=== PATIENT | female | born 1980 | race Caucasian/White ===

== ENCOUNTER 2018-03-13 21:41 | Emergency (ER) | payer MEDICAID, SELFPAY ==
[2018-03-13 21:41] VITALS: BP 142/76; PULSE 81; RESP 16; TEMP 36.6; O2SAT 98; BMI 34.9
--- NOTE | 2018-03-13 21:53 | CT_ITS ---
STUDY: CT ABDOMEN AND PELVIS WITHOUT CONTRAST REASON FOR EXAM: Female, 37 years old. Lower abdominal pain. Cramping. RADIATION DOSAGE (If Supplied By Facility): CTDIvol = ( 13.28 ) mGy, DLP = ( 713.44 ) mGycm TECHNIQUE: Transaxial images were obtained from the dome of the diaphragm to the symphysis pubis without oral contrast, and without intravenous contrast. Sagittal and coronal images were reconstructed. Individualized dose optimization techniques were used for this CT. COMPARISON: None. FINDINGS: The visualized lung bases are unremarkable. The visualized portions of the heart are within normal limits. Normal liver. The gallbladder is contracted. No biliary ductal dilatation. Normal spleen. Normal pancreas. Normal bilateral adrenal glands. There is a 2 mm nonobstructing calculus lower pole calyx of an otherwise normal right kidney. There are at least 2 calculi in the mid to lower left kidney. The largest measures 3 mm. No evidence of hydronephrosis. Normal visualized ureters. Normal visualized stomach. Normal small intestine. Descending and sigmoid diverticulosis without acute inflammatory change. The colon is otherwise unremarkable. The appendix is visualized and appears normal. Normal abdominal aorta. Normal inferior vena cava. Normal retroperitoneum. Normal urinary bladder. Normal uterus. There is a 3.9 x 2.4 x 3.1 cm right ovarian cyst. Normal left adnexa. There is no pelvic lymphadenopathy. No free air or free fluid is seen within the peritoneal cavity. Normal abdominal wall. Normal osseous structures. CT/Abdomen/Pelvis without Cont IMPRESSION: 1. Large right ovarian cyst. 2. Nonobstructing bilateral renal calculi. 3. Colonic diverticulosis without acute inflammatory change. Electronically Signed: Edward Rowland DO at 22:42 EDT Tel [phone], Service support ,
[2018-03-13 22:10] LABS: Mucous, Urine 0 SEEN /hpf (<or=2+); Red Blood Cells-Urine 0 SEEN /hpf (0-5)
[2018-03-13 22:13] LABS: Color, Urine Yellow (Yellow); Glucose, Dipstick Normal (Normal); Ketone-Dipstick Negative (Negative); Leukocyte Esterase-Dipstick 500 /ul (Negative); Nitrite-Dipstick Negative (Negative); Occult Blood-Urine 10 /ul (Negative); Protein-Dipstick 15 mg/dl (Negative); Urine Bilirubin Dipstick Negative (Negative); Urine Clarity Clear (Clear); Urine Urobilinogen Normal (Normal)
[2018-03-13] MEDS: 0.9% Normal Saline 1,000 ML 125 ML IV (22:15)
[2018-03-13] MEDS: Ketorolac 30 MG/ML Syringe IV (22:15)
[2018-03-13 22:23] LABS: Bacteria RARE /hpf (None Seen); Squamous Epithelial Cells - UA 5-10 SEEN /hpf (5-10); White Blood Cells 0-5 SEEN /hpf (0-5)
[2018-03-13 22:29] LABS: Absolute Lymphocyte Count 2.92 X10^3/ul (0.83-4.51); Absolute Neutrophil Count 5.4 X10^3/uL (2.0-7.7); Basophil# 0.02 X10^3/uL; Basophil% 0.2 % (0-1); Eosinophil# 0.38 X10^3/uL; Eosinophils% 4.1 % (0-5); Hematocrit 39.5 % (37-47); Hemoglobin 13.2 g/dl (12.0-15.0); Lymphocyte # 2.92 X10^3/ul (4.0); Lymphocyte % 31.1 % (19-41); Mean Corp Hgb Conc 33.4 g/gl (32-36); Mean Corpuscular Hgb 29.1 pg (27.0-32.0); Mean Corpuscular Volume 87.2 fL (81-99); Mean Platelet Vol. 10.1 fl (6.2-12.0); Monocyte# 0.63 X10^3/uL; Monocyte% 6.7 % (0-10); Neutrophil # 5.42 X10^3/uL (2.7-7.7); Neutrophil % 57.8 % (47-70); Platelet Count 222 K/mm3 (150-450); RBC Distribution Width CV 13.4 % (11.6-14.6); RBC Distribution Width SD 42.9 fl (35.1-43.9); Red Blood Count 4.53 M/mm3 (4.2-5.4); White Blood Count 9.4 K/mm3 (4.4-11.0)
[2018-03-13 22:30] LABS: POSITIVE COUNT NO; POSITIVE DIFFERENTIAL NO; POSITIVE MORPHOLOGY NO
[2018-03-13 22:39] LABS: ALB/GLOB Ratio 1.1 RATIO (0.9-2.4); AST(SGOT) 20 U/L (15-37); Alanine Aminotransfer ALT/SGPT 33 U/L (13-56); Albumin, Serum 3.2 g/dL (3.2-5.0); Alkaline Phosphatase 74 U/L (45-117); Anion Gap 9 (5-15); BUN 10 mg/dL (7-18); BUN/Creat Ratio 11.7 RATIO (10-20); Calcium,Total 8.4 mg/dL (8.5-10.1); Chloride 110 mmol/L (98-107); Creatinine, Serum 0.86 mg/dL (0.55-1.02); EST Glomerular Filtration Rate 78 mL/min (>60); Est Glom Filt Rate - Afr Amer 95 mL/min (>60); Estimated Creatinine Clearance 69.46 ml/min; Globulin 2.8 g/dL (2.2-4.2); Glucose 91 mg/dL (74-106); Lipase 243 U/L (73-393); Potassium 3.9 mmol/L (3.5-5.1); Sodium Level 146 mmol/L (136-145)
--- NOTE | 2018-03-13 22:56 | ED.DCSUM_ITS ---
- ER Visit Summary Date of Service: 03/13/18 Chief Complaint: [Abdominal pain] History of Present Illness: The patient is a 37 F [presents to the emergency department complaint of abdominal pain that she has had for about 3 weeks. Patient describes a dull cramping type sensation like menstrual period type pain has been relatively continuous. Patient denies any fevers. She has had some intermittent nausea and vomiting when the pains been severe. Patient states that she has had no fevers at home. She denies diarrhea or blood in her stool. Patient has history of uterine ablation and she has had a tubal ligation. She denies urinary symptoms.] Physical Examination: [HEENT-PERRLA, EOMI. Cranial nerves II through XII grossly intact. TMs clear. Mucous membranes moist. No adenopathy. Cardiovascular-regular rate and rhythm without murmur or ectopy Lungs-clear to auscultation, chest wall stable without crepitus or subcu emphysema Abdomen-normoactive bowel sounds, soft. Patient has diffuse tenderness to the lower abdomen in the right lower quadrant, suprapubic region and left lower quadrant. There is no rebound, rigidity, or perineal signs. No masses palpated Extremities-intact ?4, normal range of motion, normal pulses, atraumatic] Test Results: [CBC with differential obtained showed a normal white blood cell count of 9.4, hemoglobin 13, hematocrit 39, platelets 222. Chemistries unremarkable. LFTs were normal. Lipase was 243. Urinalysis was normal. CT scan abdomen pelvis without contrast showed a large right ovarian cyst measuring 3.9 x 2.4 x 3.1 cm. The appendix was visualized and was normal. Nothing else significant on exam.] Emergency Department Course and Treatment: [Patient initially was medicated with Toradol and had some pain improvement.] Treatment Plan: [Patient will be given a prescription for [place] for severe pain. Patient will be referred to [facility] on-call.] Disposition: [Discharged home in stable condition] Impression: [Right ovarian cyst Abdominal pain] This note was generated with [employer] dictation software. It may contain incorrect words, spelling, and punctuation that were not noted in review of the chart prior to signing ED Disposition - Plan for ED Patient: Chief Complaint: Abd Pain Referrals: Care Physician,No Primary [Primary Care Provider] -
--- NOTE | 2018-03-13 22:59 | DCINST.ED_ITS ---
ED Disposition - Plan for ED Patient: Chief Complaint: Abd Pain Instructions: ED Abdominal Pain Unkn Cause, ED Cyst Ovarian Prescriptions: Hydrocodone/Acetaminophen [[place] 5-325 Tablet] 1 - 2 ea PO 4X/DAY PRN PRN 5 Days #20 tab PRN Reason: Pain Referrals: Care Physician,No Primary [Primary Care Provider] - Angeline Man MD [STAFF PHYSICIAN] - 3-5 Days
[2018-03-13] MEDS: HYDROcodone Bitartrate/Apap 5/325 Tablet PO (23:06)
[2018-03-13 23:09] VITALS: BP 137/80; PULSE 76; RESP 18; O2SAT 96
== END 2018-03-13 23:10 | disposition home or self-care (01) ==
LOC: ED 22:40
PROVIDERS: Emergency Provider Emergency Medicine
DX: N83.201 Unspecified ovarian cyst, right side (principal); R10.31 Right lower quadrant pain; R10.32 Left lower quadrant pain; Z98.51 Tubal ligation status; Z72.0 Tobacco use
CPT/HCPCS: 74176; 80053; 81001; 83690; 85025; 96361; 96374; 99283; J7030; A4216

== ENCOUNTER → 2018-04-19 12:24 | Outpatient (CLI) | payer MEDICAID, SELFPAY ==
--- NOTE | 2018-04-19 12:26 | US_ITS ---
STUDY: ULTRASOUND OF THE FEMALE PELVIS - COMPLETE REASON FOR EXAM: Female, 37 years old. Pain. History of ovarian cyst LMP: TECHNIQUE: Transvaginal TECHNICAL QUALITY: Adequate. COMPARISON: None. FINDINGS: The uterus is anteverted and is in a midline position. The uterus measures 7.9 x 5.2 x 4.2 cm. There is a Nabothian cyst of the cervix. The endometrium measures 5 mm in thickness, and is hyperechoic. There is no demonstrated endometrial mass. Fibroid visualized in the uterus measuring 23 x 20 x 19 mm. I.U.D. - The patient does not have an I.U.D. The right ovary is visualized. The right ovary measures 3.8x 3.5 x2.5 cm. Simple cyst in the right ovary measuring 24 x 29 x 16 mm. There is no visualized right adnexal mass or complex lesion. There is normal arterial and normal venous vascularity. The left ovary is visualized. The left ovary measures 2.4X1.5X1.7 cm. There is no left ovarian cyst or ovarian mass. There is no visualized left adnexal mass or complex lesion. There is normal arterial and normal venous vascularity. There is no fluid in the cul-de-sac. The pre void volume of the bladder was 327ML. US/Transvaginal Non- IMPRESSION: Simple right ovarian cyst. Fibroid. Electronically Signed: Toni Reyes MD at 18:06 EDT , Service support ,
--- NOTE | 2018-04-19 12:26 | US_ITS ---
STUDY: ULTRASOUND OF THE FEMALE PELVIS - COMPLETE REASON FOR EXAM: Female, 37 years old. Pain. History of ovarian cyst LMP: TECHNIQUE: Transvaginal TECHNICAL QUALITY: Adequate. COMPARISON: None. FINDINGS: The uterus is anteverted and is in a midline position. The uterus measures 7.9 x 5.2 x 4.2 cm. There is a Nabothian cyst of the cervix. The endometrium measures 5 mm in thickness, and is hyperechoic. There is no demonstrated endometrial mass. Fibroid visualized in the uterus measuring 23 x 20 x 19 mm. I.U.D. - The patient does not have an I.U.D. The right ovary is visualized. The right ovary measures 3.8x 3.5 x2.5 cm. Simple cyst in the right ovary measuring 24 x 29 x 16 mm. There is no visualized right adnexal mass or complex lesion. There is normal arterial and normal venous vascularity. The left ovary is visualized. The left ovary measures 2.4X1.5X1.7 cm. There is no left ovarian cyst or ovarian mass. There is no visualized left adnexal mass or complex lesion. There is normal arterial and normal venous vascularity. There is no fluid in the cul-de-sac. The pre void volume of the bladder was 327ML. US/Pelvic (Non ) IMPRESSION: Simple right ovarian cyst. Fibroid. Electronically Signed: Toni Reyes MD at 18:06 EDT , Service support ,
== END ==
PROVIDERS: Visit Provider Nurse Practitioner Women's Health
DX: N83.201 Unspecified ovarian cyst, right side (principal)
CPT/HCPCS: 76830; 76856; 93976

== ENCOUNTER 2018-05-03 23:27 | Emergency (ER) | payer MEDICAID, SELFPAY ==
[2018-05-03 23:28] VITALS: BP 144/96; PULSE 72; RESP 16; TEMP 36.8; O2SAT 98; BMI 38.8
--- NOTE | 2018-05-03 23:46 | ED.VISSUMM ---
- ER Visit Summary Date of Service: 05/03/18 Chief Complaint: [] Back pain History of Present Illness: The patient is a 37 F complaint back pain for last 2 days gradual onset continuous muscle spasms across her low back. She has been using Tylenol with minimal minimal to moderate relief. His movement related. Reason she came in tonight was because she stood up and briefly felt 2 seconds of periumbilical pain radiating to her bladder. Last for very short period time it was sharp. Now she has slight pain in her pubic bones. She thought maybe she passed a kidney stone and she had a CT abdomen pelvis last month that showed bilateral small kidney stones. She has never had them passed into her ureters before. She denies any urinary symptoms. She does have a history of a right ovarian cyst seen on and last month and that is not bothering her. Denies . History of tubal ligation Physical Examination: [] Vital signs reviewed General: Well-nourished well-developed Head: Normocephalic atraumatic Eyes: Pupils equal round and reactive to light extraocular movements intact ENT: TMs clear no hemotympanum no trauma Neck: Nontender full range of motion Cardiovascular: Regular rate rhythm no murmurs normal S1-S2 Respiratory: No distress clear to auscultation bilaterally chest nontender Abdomen: Soft nontender nondistended normal bowel sounds no masses Back:. Mild tenderness diffusely in the back. Extremities: Nontender active range of motion ?4 extremities no trauma Skin: Normal color no trauma Neuro alert oriented cranial nerves II through XII intact normal strength sensation reflexes Test Results: [] Emergency Department Course and Treatment: [] At this time I have a low suspicion for kidney stone. Her back pain is more musculoskeletal in nature. This pain in her abdomen only lasted for couple seconds. She states she has some very mild pain over her pubic bones. She denies any vaginal symptoms. Urine analysis and were sent. Given Tylenol. negative. Urinalysis shows 10-25 white and rare bacteria. Positive leukocyte esterase. I suspect she has a cystitis. Given Cipro and Pyridium. Will follow-up as an outpatient Treatment Plan: [] Disposition: [] Impression: [] Cystitis urinary tract infection Low back musculoskeletal pain This note was generated with Ateeda[employer] software. It may contain incorrect words, spelling, and punctuation that were not noted in review of the chart prior to signing ED Disposition - Plan for ED Patient: Chief Complaint: Back Referrals: Care Physician,No Primary [Primary Care Provider] -
[2018-05-04] MEDS: Acetaminophen 500 MG Tablet 1000 MG PO (00:24)
[2018-05-04 00:38] LABS: Color, Urine Yellow (Yellow); Glucose, Dipstick Normal (Normal); Ketone-Dipstick Negative (Negative); Leukocyte Esterase-Dipstick 500 /ul (Negative); Mucous, Urine 0 SEEN /hpf (<or=2+); Nitrite-Dipstick Negative (Negative); Occult Blood-Urine 10 /ul (Negative); Protein-Dipstick Negative (Negative); Red Blood Cells-Urine 0 SEEN /hpf (0-5); Specific Gravity, Urine 1.015 (1.002-1.030); Urine Bilirubin Dipstick Negative (Negative); Urine Clarity Clear (Clear); Urine Urobilinogen Normal (Normal)
[2018-05-04 00:42] LABS: Internal QC Validated? YES +Cl - CLEAR BKGD; Pregnancy, Urine Negative Negative
[2018-05-04 00:53] LABS: White Blood Cells 10-25 SEEN /hpf (0-5)
[2018-05-04 00:54] LABS: Squamous Epithelial Cells - UA 5-10 SEEN /hpf (5-10)
[2018-05-04 00:55] LABS: Bacteria RARE /hpf (None Seen)
--- NOTE | 2018-05-04 00:59 | ED.DEP ---
ED Disposition - Plan for ED Patient: Disposition: Home or Assisted Living Chief Complaint: Back Instructions: ED UTI Cystitis Female Prescriptions: Phenazopyridine HCl [Pyridium] 200 mg PO BID PRN PRN #10 tab PRN Reason: Pain Ciprofloxacin [Cipro] 500 mg PO BID #10 tab Referrals: Care Physician,No Primary [Primary Care Provider] -
[2018-05-04] MEDS: Ciprofloxacin 500 MG Tablet PO (01:06)
[2018-05-04] MEDS: Phenazopyridine 95 MG Tablet 190 MG PO (01:06)
[2018-05-04 01:12] VITALS: BP 130/79; PULSE 68; RESP 18; O2SAT 98
== END 2018-05-04 01:13 | disposition home or self-care (01) ==
PROVIDERS: Emergency Provider Emergency Medicine
DX: N39.0 Urinary tract infection, site not specified (principal); M54.5 Low back pain; M62.830 Muscle spasm of back; N83.201 Unspecified ovarian cyst, right side; E66.9 Obesity, unspecified; Z87.442 Personal history of urinary calculi; Z98.51 Tubal ligation status; Z72.0 Tobacco use
CPT/HCPCS: 81001; 81025; 99283

== ENCOUNTER 2018-05-13 13:02 | Emergency (ER) | payer MEDICAID, SELFPAY ==
[2018-05-13 13:03] VITALS: BP 159/94; PULSE 66; RESP 18; TEMP 36.1; O2SAT 99; BMI 38.5
--- NOTE | 2018-05-13 13:14 | RAD_ITS ---
STUDY: X-RAY - RIGHT KNEE REASON FOR EXAM: Female, 37 years old. INJURED RT KNEE AFTER IMPACT WITH TRUCK HITCH LAST EVENING, ANTERIOR PAIN TECHNIQUE: 4 view(s) of the knee. COMPARISON: None. FINDINGS: Normal visualized distal femur. Normal visualized proximal tibia and fibula. Normal proximal tibiofibular articulation. Normal medial femorotibial compartment. Normal lateral femorotibial compartment. Normal patellofemoral articulation. The soft tissue structures are unremarkable. RAD/Knee 4 or More Views IMPRESSION: Normal x-ray examination of the knee. Electronically Signed: Magdi Stein MD at 14:11 EDT Tel , Service support ,
--- NOTE | 2018-05-13 13:18 | ED.DCSUM_ITS ---
- ER Visit Summary Date of Service: 05/13/18 Chief Complaint: [] Right knee injury yesterday hit against a trailer hitch History of Present Illness: The patient is a 37 F [] reports she hit her right knee against a vehicle trailer hitch yesterday she has had persistent pain to the area she has no known problems with her knees or joints. She has no other complaints is on no medications has a primary care doctor but has not seen them yet Physical Examination: [] Vital signs are within normal range her general medical exam is unremarkable head neck chest normal the abdomen is soft the right knee and hip and lower extremity the hip thigh unremarkable the right knee there is some very mild tenderness to palpation diffusely over the knee the patella is in good position no obvious effusion chart flexion-extension is intact no instability the tib-fib ankle foot exam are unremarkable neurologic exam unremarkable Test Results: [] Emergency Department Course and Treatment: [] Given her complaints x-ray is done she is given one [place] tablet she does have her primary care doctor The x-ray per radiology shows nothing acute of explained all the above to her including concept of an occult injury she started on crutches ice elevation Naprosyn for pain and she will follow with her primary care provider for further management Treatment Plan: [] Disposition: [] Home stable Impression: [] Acute right knee injury This note was generated with [employer] dictation software. It may contain incorrect words, spelling, and punctuation that were not noted in review of the chart prior to signing ED Disposition - Plan for ED Patient: Chief Complaint: Lower Extremity Injury Referrals: Care Physician,No Primary [Primary Care Provider] -
[2018-05-13] MEDS: HYDROcodone Bitartrate/Apap 5/325 Tablet PO (13:37)
[2018-05-13 13:39] VITALS: BP 128/85; PULSE 63; RESP 16; O2SAT 98
--- NOTE | 2018-05-13 15:56 | ED.DEP ---
ED Disposition - Plan for ED Patient: Chief Complaint: Lower Extremity Injury Instructions: ED Meniscal Injury Knee Poss Prescriptions: Naproxen [Naprosyn] 500 mg PO BID PRN #20 tab Referrals: Care Physician,No Primary [Primary Care Provider] -
[2018-05-13 16:05] VITALS: BP 157/98; PULSE 67; RESP 16; O2SAT 98
== END 2018-05-13 16:06 | disposition home or self-care (01) ==
LOC: ED 13:41
PROVIDERS: Emergency Provider Emergency Medicine
DX: S89.91XA Unspecified injury of right lower leg, initial encounter (principal); W22.8XXA Striking against or struck by other objects, initial encounter; Y93.9 Activity, unspecified; Y92.9 Unspecified place or not applicable
CPT/HCPCS: 73564; 99284

== ENCOUNTER 2018-10-19 20:46 | Emergency (ER) | payer OTHER, SELFPAY ==
[2018-10-19 20:47] VITALS: BP 122/84; PULSE 88; RESP 18; TEMP 36.1; O2SAT 98; BMI 38.1
--- NOTE | 2018-10-19 22:41 | ED.VISSUMM ---
- ER Visit Summary Date of Service: 10/19/18 Chief Complaint: Vomiting and diarrhea History of Present Illness: The patient is a 38 F who sees Monse Steen. She reports she has vomiting and diarrhea that began yesterday. States she vomited 7 times. No blood in her emesis. She had one episode of diarrhea. No blood in her stools or black tarry stools. She reports that she has sharp epigastric pain is 6 out of 10 currently an 8 out of 10 at worst. Is increased by nothing and worsened by nothing. She denies any history of spicy or fatty food intolerance. Patient does report she has had sick contacts. She works in a long term. She reports that she was on doxycycline approximately 1 month ago. She has not been camping out of the country. No possible bad food exposure. She does not drink well water. Physical Examination: Vitals: Stable. Afebrile. General: Well-nourished and well-developed. Head: Normocephalic atraumatic. Neck: Supple, no lymphadenopathy. No JVD. Nontender. Cardiovascular: Regular rate and rhythm. No murmurs. Respiratory: No respiratory distress. Clear to auscultation bilaterally. Abdominal: Soft, mild epigastric tenderness to palpation, nondistended, normal bowel sounds. No guarding, rebound, or peritoneal signs. Back: Nontender. Extremities: Nontender, no edema. Skin: Normal color, no rash. Neurologic: Alert and oriented ?3. Cranial nerves II through XII are intact. Normal strength and sensation. Psych: Normal affect. Test Results: CBC is normal. Chem-7 is more for potassium 3.3, chloride 110, calcium 7.4. LFTs show total protein 5.9 and albumin 3.1. Lipase normal. test is negative. Influenza is negative. Emergency Department Course and Treatment: Patient had an IV placed. She was given Toradol and Zofran IV. She was given a liter normal saline. She had no vomiting or diarrhea while here. Treatment Plan: Patient will be discharged with Zofran. Instructed to follow-up her primary care physician 1-2 days if not improving. Return to the emergency department for any worsening symptoms. Disposition: To home in improved and stable condition. Impression: 1. Vomiting/diarrhea. This note was generated with [employer]ation software. It may contain incorrect words, spelling, and punctuation that were not noted in review of the chart prior to signing ED Disposition - Plan for ED Patient: Disposition: Home or Assisted Living Instructions: ED Vomiting Diarrhea Nonspecific Ad Referrals: Teagan Steen, [employer] [facility] [Primary Care Provider] - 1-2 Days if not improving
[2018-10-19] MEDS: Ondansetron 4 MG/2 ML Vial IV (23:03)
[2018-10-19] MEDS: Ketorolac 30 MG/ML Syringe IV (23:03)
[2018-10-19] MEDS: 0.9% Normal Saline 1,000 ML 1000 ML IV (23:03)
[2018-10-19 23:06] LABS: Absolute Lymphocyte Count 1.64 X10^3/ul (0.83-4.51); Absolute Neutrophil Count 3.2 X10^3/uL (2.0-7.7); Basophil# 0.01 X10^3/uL; Basophil% 0.2 % (0-1); Eosinophil# 0.14 X10^3/uL; Eosinophils% 2.5 % (0-5); Hematocrit 42.7 % (37-47); Hemoglobin 14.2 g/dl (12.0-15.0); Lymphocyte # 1.64 X10^3/ul (4.0); Lymphocyte % 29.6 % (19-41); Mean Corp Hgb Conc 33.3 g/gl (32-36); Mean Corpuscular Hgb 28.5 pg (27.0-32.0); Mean Corpuscular Volume 85.7 fL (81-99); Mean Platelet Vol. 10.2 fl (6.2-12.0); Monocyte# 0.51 X10^3/uL; Monocyte% 9.2 % (0-10); Neutrophil # 3.24 X10^3/uL (2.7-7.7); Neutrophil % 58.5 % (47-70); Platelet Count 179 K/mm3 (150-450); RBC Distribution Width CV 13.5 % (11.6-14.6); RBC Distribution Width SD 42.1 fl (35.1-43.9); Red Blood Count 4.98 M/mm3 (4.2-5.4); White Blood Count 5.5 K/mm3 (4.4-11.0)
[2018-10-19 23:08] LABS: POSITIVE COUNT NO; POSITIVE DIFFERENTIAL NO; POSITIVE MORPHOLOGY NO
[2018-10-19 23:21] LABS: ALB/GLOB Ratio 1.1 RATIO (0.9-2.4); AST(SGOT) 15 U/L (15-37); Alanine Aminotransfer ALT/SGPT 19 U/L (13-56); Albumin, Serum 3.1 g/dL (3.2-5.0); Alkaline Phosphatase 47 U/L (45-117); Anion Gap 6 (5-15); BUN 9 mg/dL (7-18); BUN/Creat Ratio 10.6 RATIO (10-20); Calcium,Total 7.4 mg/dL (8.5-10.1); Chloride 110 mmol/L (98-107); Creatinine, Serum 0.85 mg/dL (0.55-1.02); EST Glomerular Filtration Rate 79 mL/min (>60); Est Glom Filt Rate - Afr Amer 95 mL/min (>60); Estimated Creatinine Clearance 66.39 ml/min; Globulin 2.8 g/dL (2.2-4.2); Glucose 88 mg/dL (74-106); Lipase 87 U/L (73-393); Potassium 3.3 mmol/L (3.5-5.1); Protein, Total 5.9 g/dL (6.4-8.2); Sodium Level 142 mmol/L (136-145)
[2018-10-19 23:26] LABS: Pregnancy, Serum, hCG Quali. NEGATIVE Negative (0-9 Nonpreg)
[2018-10-20] MEDS: Ondansetron ODT 4 MG Tablet PO (01:24)
[2018-10-20 01:25] VITALS: BP 106/63; PULSE 67; RESP 16
== END 2018-10-20 01:25 | disposition home or self-care (01) ==
PROVIDERS: Emergency Provider Emergency Medicine; Family Provider Nurse Practitioner Family; PCP Nurse Practitioner Family
DX: R19.7 Diarrhea, unspecified (principal); R11.2 Nausea with vomiting, unspecified; R10.9 Unspecified abdominal pain; R51 Headache; F17.210 Nicotine dependence, cigarettes, uncomplicated
CPT/HCPCS: 80053; 83690; 84703; 85025; 87804; 96361; 96374; 96375; 99283; J7030; J2405

== ENCOUNTER 2019-04-17 17:57 | Emergency (ER) | payer SELFPAY ==
[2019-04-17 17:58] VITALS: BP 151/93; PULSE 58; RESP 16; TEMP 36.4; O2SAT 97; BMI 35.5
--- NOTE | 2019-04-17 18:10 | ED.VISSUMM ---
- ER Visit Summary Date of Service: 04/17/19 Chief Complaint: [Redness and swelling right middle finger] History of Present Illness: The patient is a 38 F [presents to the emergency department with redness and swelling to her right middle finger after pulling a hangnail 4 days ago. Patient is hand dominant. Patient states that she is pulled multiple hangnail before never had an issue like this before. Describes pain and throbbing to the area. She denies any fevers.] Physical Examination: [Right middle finger-patient has some faint erythema just proximal to the nail. Over the lateral edge of the nail there is a small excoriated area where she had pulled a hangnail from. There is no fluctuance or definite abscess noted at this time. Area slightly tender to palpation. Neurovascular intact.] Test Results: [None indicated] Emergency Department Course and Treatment: [Discussed possible treatment options with the patient including attempted I&D although I suspect this is more of a cellulitic process at this point as I do not see any fluctuance or discrete abscess. Also discussed using antibiotics and if symptoms do not improve to return to the emergency department or follow-up with primary care physician for possible I&D.] Treatment Plan: [Patient will be started on clindamycin and advised to follow-up with primary care physician.] Disposition: Discharged home in stable condition] Impression: [Right middle finger paronychia/cellulitis] This note was generated with [employer] dictation software. It may contain incorrect words, spelling, and punctuation that were not noted in review of the chart prior to signing ED Disposition - Plan for ED Patient: Referrals: NOT,DEFINED [Primary Care Provider] -
--- NOTE | 2019-04-17 18:15 | ED.DEP ---
ED Disposition - Plan for ED Patient: Instructions: Paronychia Prescriptions: Clindamycin HCl [Cleocin] 300 mg PO Q6H #40 cap Prescription Printed Referrals: NOT,DEFINED [Primary Care Provider] - Sincere Haskins MD [STAFF PHYSICIAN] - 3-5 Days
[2019-04-17] MEDS: Clindamycin HCl 150 MG Capsule 300 MG PO (18:25)
== END 2019-04-17 18:27 | disposition home or self-care (01) ==
LOC: ED 18:21
PROVIDERS: Emergency Provider Emergency Medicine
DX: L03.011 Cellulitis of right finger (principal); Z72.0 Tobacco use
CPT/HCPCS: 99283

== ENCOUNTER 2019-04-26 23:20 | Emergency (ER) | payer SELFPAY ==
[2019-04-26 23:44] VITALS: BP 135/91; PULSE 66; RESP 18; TEMP 36.5; O2SAT 98; BMI 36.3
--- NOTE | 2019-04-26 23:59 | ED.VIS.GEN ---
History of Present Illness Chief Complaint: Upper Extremity Injury Narrative: Patient is a 38-year-old female who presents with a left hand injury. She was holding some books to her chest with her right hand and had a can of red bowl on top of it. The can fell and she tried to catch it with her left hand and hit her hand near the base of her thumb. This occurred 8 hours ago. She complains of pain isolated to the base of the left thumb. She did take Tylenol about 7 PM but still continues to have pain. No numbness tingling weakness or loss of function. Past Medical History - Allergies and Home Meds Allergies/Adverse Reactions: Allergies guaifenesin [From Mucinex] Adverse Reaction (Severe, Verified 04/17/19 17:58) stomach cramps bupropion [From Wellbutrin] Adverse Reaction (Verified 04/17/19 17:58) Other sulfamethoxazole [From Bactrim] Adverse Reaction (Verified 04/17/19 17:58) Nausea/Vom/Diarrhea trimethoprim [From Bactrim] Adverse Reaction (Verified 04/17/19 17:58) Nausea/Vom/Diarrhea macrobid Adverse Reaction (Severe, Uncoded 04/17/19 17:58) vomiting Primary Care Physician: Care Physician,No Primary [Primary Care Provider] - Prior records reviewed: Yes Past Medical History: None Surgical History: no surgical history Smoking Status: Current every day smoker Review of Systems All systems negative except as indicated Physical Exam Vital Signs/Narrative: Vital Signs Temp Pulse Resp BP Pulse Ox 04/26/19 23:44 97.7 F L 66 18 135/91 H 98 Inital Vital Signs reviewed: Yes General: Well nourished Head: Normocephalic Eyes: EOMI ENT: Moist mucous membranes Neck: Supple Cardiovascular: Regular rate Respiratory: No distress Extremities: - - Patient complains of tenderness of the left hand at the base of the left thumb I do not appreciate visual signs of any trauma such as soft tissue swelling abrasions ecchymosis she has active full range of motion with brisk capillary refill normal sensation light touch no tenderness of the wrist Skin: Normal color Neurological: Alert Diagnostic/Tx/Re-eval Impressions Hand X-Ray 04/27/19 00:00 IMPRESSION: Normal x-ray examination of the hand. Electronically Signed: David Ramos MD at 0:39 EDT , Service support , 04/27/19 00:00 Hand Min 3 Views [RAD] Stat - Medical Decision Making Hand x-ray normal. Patient was given ibuprofen. She was advised on supportive care including ice and elevation was discharged home. ED Disposition - Plan for ED Patient: Disposition: Home or Assisted Living Diagnosis: Hand contusion Instructions: CONTUSION, Hand Referrals: Care Physician,No Primary [Primary Care Provider] -
--- NOTE | 2019-04-27 | RAD_ITS ---
STUDY: X-RAY - LEFT HAND REASON FOR EXAM: Female, 38 years old. Pain of the right first metacarpal. Patient tried to catch something. TECHNIQUE: 3 view(s) of the hand. COMPARISON: None. FINDINGS: Normal radiocarpal articulation. Normal distal radioulnar joint. Normal visualized carpal bones. Normal carpal articulations Normal carpometacarpal articulation of the thumb. Normal second through fifth carpometacarpal joints. Normal metacarpi. Normal metacarpophalangeal joint of the thumb. Normal interphalangeal joint of the thumb. Normal proximal and distal phalanges of the thumb. Normal metacarpophalangeal joints of the second through fifth fingers. Normal proximal and distal interphalangeal joints of the second through fifth fingers. Normal phalanges of the second through fifth fingers. The soft tissue structures are unremarkable. RAD/Hand Min 3 Views IMPRESSION: Normal x-ray examination of the hand. Electronically Signed: David Ramos MD at 0:39 EDT , Service support ,
[2019-04-27] MEDS: Ibuprofen 200 MG Tablet 400 MG PO (00:03)
== END 2019-04-27 00:53 | disposition home or self-care (01) ==
PROVIDERS: Emergency Provider Emergency Medicine
DX: S60.222A Contusion of left hand, initial encounter (principal); W22.8XXA Striking against or struck by other objects, initial encounter; Y93.9 Activity, unspecified; Y92.9 Unspecified place or not applicable; F17.200 Nicotine dependence, unspecified, uncomplicated
CPT/HCPCS: 73130; 99283